=== PATIENT | female | born 1950 | race African-American/Black ===

== ENCOUNTER → 2017-02-03 | Outpatient (CLI) | payer OTHER ==
--- NOTE | ~2017-02-03 | MY11 ---
[facility] A Service of [facility] RADIOLOGY TEXT RESULTS PATIENT: ALANNAH NELSON LOCATION: [facility] : 46 UNIT #: [id number] AGE: [address]: PIETRO SANTIAGO APRN SEX: F ORDER DR: [id number] [facility] [address] [place], [place] [address] [id number] O MR#: [id number] Acc #: [id number] NAME: ALANNAH NELSON : 1950 SEX: F STUDY DATE/TIME: 02/03/2017 12:38 UNIT: [facility] ROOM: STUDY DESCRIPTION: MY Mammogram Screening Dig Isaiah Attending Physician: Pietro Santiago Aprn Referring Physician: Pietro Santiago Aprn Ordering Physician: Pietro Santiago Aprn Primary Care Physician: Pietro Santiago Aprn MEDICAL IMAGING REPORT This report is preliminary unless electronic signature is present EXAM Screening mammogram, 02/03. INDICATION 66 year old with no personal or family history of breast cancer. No current complaints. FINDINGS Routine digital screening views of both breasts were obtained. Study is reviewed with an FDA-approved CAD device. Comparison is made with 09/01/2015, 01/14/2014. Breast parenchyma shows scattered fibroglandular densities. There are no new masses or suspicious microcalcifications. IMPRESSION Negative mammogram. Routine screen in 1 year is recommended. Patients over the age of 40 are entered into a reminder system with target due date for the next mammogram. A result letter will also be sent to the patient. BIRADS: 1 Negative Dictated by... Martín Mccurdy Jr., M.D. THIS IS AN ELECTRONICALLY VERIFIED REPORT Martín Mccurdy Jr., M.D. at 02/04/2017 7:24 AM CARMEN/marcy TD: 02/03/2017 17:04 JOB #: [id number] [facility] A Service of [facility] RADIOLOGY TEXT RESULTS PATIENT: ALANNAH NELSON LOCATION: [facility] #: [id number] : 46 UNIT #: [id number] AGE: [address]: PIETRO SANTIAGO APRN SEX: F ORDER DR: MEDICAL IMAGING REPORT Page 1 of 1 COPY
== END | disposition home or self-care (01) ==
LOC: CWCC 12:15
DX: Z12.31 Encounter for screening mammogram for malignant neoplasm of breast (principal)
CPT/HCPCS: G0202